=== PATIENT | female | born 2005 | race Hispanic/Latino ===

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

== ENCOUNTER 2024-05-05 15:13 | Emergency (ER) | payer OTHER | END 2024-05-05 17:56 | disposition home or self-care (01) | LOC: ERS 15:13 | DX: M79.645 Pain in left finger(s) (principal); W23.0XXA Caught, crushed, jammed, or pinched between moving objects, initial encounter | CPT/HCPCS: 99283 ==